=== PATIENT | female | born 1985 | race Caucasian/White ===

== ENCOUNTER 2017-12-12 00:22 | Inpatient (IN) | END 2017-12-12 17:32 | disposition left against medical advice (07) | DRG 781 ==

== ENCOUNTER 2017-12-13 21:38 | Inpatient (IN) | END 2017-12-20 13:35 | disposition home or self-care (01) | DRG 781 ==

== ENCOUNTER 2017-12-25 04:12 | Inpatient (IN) | END 2017-12-26 16:30 | disposition left against medical advice (07) | DRG 775 ==

== ENCOUNTER 2018-09-24 13:33 | Emergency (ER) | END 2018-09-24 15:50 | disposition home or self-care (01) ==